=== PATIENT | male | born 1960 | race Caucasian/White ===

== ENCOUNTER 2017-10-08 06:07 | Day surgery (SDC) | payer OTHER | END 2017-10-08 11:40 | disposition home or self-care (01) | LOC: AMB-ENDOS 06:07 | DX: D12.7 Benign neoplasm of rectosigmoid junction (principal); K64.1 Second degree hemorrhoids; K64.2 Third degree hemorrhoids; Z12.11 Encounter for screening for malignant neoplasm of colon ==